=== PATIENT | female | born 1965 | race Caucasian/White ===

== ENCOUNTER 2017-01-11 18:34 | Inpatient (IN) | payer SELFPAY ==
[~2017-01-11] VITALS: Ht 157.5 cm; Wt 65.3 kg
[2017-01-11 20:09] LABS: BASOPHIL % 0.3 % (0-2); PLATELET COUNT 360 x10^3mcL (130-400)
[2017-01-11 20:10] LABS: RED CELL DISTRIBUTION WIDTH 16.4 % (11.5-14.5)
[2017-01-11 20:14] LABS: UA SPECIFIC GRAVITY >=1.030 (1.005-1.035); microscopic required? YES; urine erythrocyte NEGATIVE (NEGATIVE)
[2017-01-11 20:19] LABS: CALCIUM 9.2 mg/dL (8.5-10.1); CARBON DIOXIDE 25.2 mmol/L (21-32); CHLORIDE SERUM 100 mmol/L (98-107); CREATININE SERUM 0.9 mg/dL (0.6-1.0); GFR1 > 60 mL/min; GLUCOSE SERUM 140 mg/dL (74-106); POTASSIUM SERUM 4.1 mmol/L (3.5-5.1); SODIUM SERUM 139 mmol/L (136-145)
[2017-01-11 20:23] LABS: ALBUMIN 3.4 g/dL (3.4-5.0); ALKALINE PHOSPHATASE 104 U/L (46-116); ALT/SGPT 14 U/L (14-59); AST/SGOT 16 U/L (15-37); BILIRUBIN TOTAL 0.9 mg/dL (0.20-1.00); TOTAL PROTEIN, SERUM 7.6 g/dL (6.4-8.2)
[2017-01-11 20:31] LABS: CK-MB 1.2 ng/mL (0-3.6)
[2017-01-11] MEDS ORDERED: LABETALOL HYDR200 M1 PO (21:43)
[2017-01-11] MEDS ORDERED: GLIMEPIRIDE2 M1 PO (21:43)
[2017-01-11] MEDS ORDERED: EDARBI40 M1 PO (21:44)
[2017-01-11] MEDS ORDERED: GLU850 PO (21:44)
[2017-01-11] MEDS ORDERED: ALDACTONE25 MG PO (21:44)
[2017-01-12 00:26] LABS: CHOLESTEROL/HDL RATIO 3.3
[2017-01-12 00:33] LABS: FREE T4 1.24 ng/dL (0.76-1.46); FREE THYROXINE INDEX 3.8 ug/dL (1.4-4.5); T4(THYROXINE) 11.5 ug/dL (4.7-13.3)
[2017-01-12 00:35] VITALS: BP 181/114
[2017-01-12 05:26] VITALS: BP 136/94
[2017-01-12 06:22] LABS: BASOPHIL % 0.3 % (0-2); PLATELET COUNT 313 x10^3mcL (130-400)
[2017-01-12 06:31] LABS: RED CELL DISTRIBUTION WIDTH 16.1 % (11.5-14.5)
[2017-01-12 06:32] LABS: CHLORIDE SERUM 102 mmol/L (98-107); CREATININE SERUM 0.9 mg/dL (0.6-1.0); GFR1 > 60 mL/min; GLUCOSE SERUM 81 mg/dL (74-106); MAGNESIUM 1.4 mg/dL (1.8-2.4); PHOSPHOROUS 4.8 mg/dL (2.5-4.9); POTASSIUM SERUM 3.6 mmol/L (3.5-5.1); SODIUM SERUM 141 mmol/L (136-145)
[2017-01-12 08:40] VITALS: BP 157/94
[2017-01-12 10:35] LABS: T3 TOTAL 1.36 ng/mL
[2017-01-12 13:56] VITALS: BP 151/98
[2017-01-12 18:15] VITALS: BP 154/75; BP 160/91
[2017-01-12 22:26] VITALS: BP 168/64
[2017-01-13] VITALS (13 sets, daily range): BP systolic 130–176; BP diastolic 73–103; Ht 157.5 cm; Wt 65.3 kg
[2017-01-13 06:14] LABS: BASOPHIL % 0.4 % (0-2); PLATELET COUNT 308 x10^3mcL (130-400)
[2017-01-13 06:16] LABS: CALCIUM 9.2 mg/dL (8.5-10.1); CARBON DIOXIDE 30.4 mmol/L (21-32); CHLORIDE SERUM 99 mmol/L (98-107); CREATININE SERUM 0.8 mg/dL (0.6-1.0); GFR1 > 60 mL/min; GLUCOSE SERUM 79 mg/dL (74-106); POTASSIUM SERUM 3.3 mmol/L (3.5-5.1); SODIUM SERUM 138 mmol/L (136-145)
[2017-01-13 06:19] LABS: RED CELL DISTRIBUTION WIDTH 15.9 % (11.5-14.5)
[2017-01-13 07:48] LABS: AMPHETAMINE QUAL UR NONE DETECTED (NEG <=1000)
[2017-01-13 15:00] LABS: SOURCE FLUID THORACENTESIS
[2017-01-14 06:03] LABS: BASOPHIL % 0.5 % (0-2); PLATELET COUNT 327 x10^3mcL (130-400)
[2017-01-14 06:18] LABS: CALCIUM 8.8 mg/dL (8.5-10.1); CARBON DIOXIDE 28.9 mmol/L (21-32); CHLORIDE SERUM 100 mmol/L (98-107); CREATININE SERUM 0.8 mg/dL (0.6-1.0); GFR1 > 60 mL/min; GLUCOSE SERUM 83 mg/dL (74-106); POTASSIUM SERUM 3.4 mmol/L (3.5-5.1); SODIUM SERUM 137 mmol/L (136-145)
[2017-01-14 06:24] VITALS: BP 162/100
[2017-01-14 06:27] LABS: RED CELL DISTRIBUTION WIDTH 16.2 % (11.5-14.5)
[2017-01-14 09:23] VITALS: BP 152/86
[2017-01-14] MEDS ORDERED: LOVASTATIN20 MG PO ×2 (11:52→15:12)
[2017-01-14] MEDS ORDERED: ZESTRIL20 MG PO ×2 (12:02→15:12)
[2017-01-14] MEDS ORDERED: L40I PO ×2 (12:04→15:12)
[2017-01-14] MEDS ORDERED: HYDRALAZINE10 MG PO ×2 (12:05→15:12)
[2017-01-14] MEDS ORDERED: COR3 PO ×2 (12:05→15:12)
[2017-01-14 12:50] VITALS: BP 152/86
[2017-01-14 13:36] VITALS: BP 152/86
== END 2017-01-14 15:23 | disposition home or self-care (01) | DRG 291 ==
LOC: ED 18:34 → DU 01-12 00:10
PROVIDERS: Emergency Medicine; ADMIT Family Medicine
PROC: 0W993ZZ Drainage of Right Pleural Cavity, Percutaneous Approach (ICD-10-PCS; principal; 2017-01-12)
DX: I11.0 Hypertensive heart disease with heart failure (principal); N17.0 Acute kidney failure with tubular necrosis; J90 Pleural effusion, not elsewhere classified; E44.0 Moderate protein-calorie malnutrition; J98.11 Atelectasis; D68.69 Other thrombophilia; R18.8 Other ascites; I50.43 Acute on chronic combined systolic (congestive) and diastolic (congestive) heart failure; E11.65 Type 2 diabetes mellitus with hyperglycemia; I42.9 Cardiomyopathy, unspecified; E87.6 Hypokalemia; E83.42 Hypomagnesemia; Z68.30 Body mass index [BMI] 30.0-30.9, adult
CPT/HCPCS: 32555; 80307; 82962; 83880; 84439; 94150; C1729; G0480; J0360; J1940; J3475; J7030; Q0092